=== PATIENT | male | born 1995 | race Caucasian/White ===

== ENCOUNTER 2019-01-03 11:18 | Emergency (ER) | payer OTHER ==
[~2019-01-03] VITALS: Ht 175.3 cm; Wt 93.2 kg
[2019-01-03 12:25] LABS: APPEARANCE, URINE CLEAR (CLEAR); BACTERIA, URINE AUTO NEGATIVE (NEGATIVE); BILIRUBIN, URINE AUTO NEGATIVE (NEGATIVE); BLOOD, URINE BLOOD 2+ (NEGATIVE); COLOR, URINE STRAW (YELLOW); GLUCOSE, URINE (UA) AUTO NEGATIVE (NEGATIVE); KETONE, URINE AUTO NEGATIVE (NEGATIVE); LEUKOCYTE ESTERASE, URINE AUTO NEGATIVE (NEGATIVE); NITRITE, URINE AUTO NEGATIVE (NEGATIVE); PROTEIN, URINE AUTO NEGATIVE (NEGATIVE); RBC, URINE AUTO 0 /HPF (0-3); SPECIFIC GRAVITY URINE AUTO 1.004 (1.002-1.035); SQUAMOUS EPITHELIAL CELL UR AU 0 /HPF (0-6); UROBILINOGEN, URINE AUTO 0.2 mg/dL (0.0-2.0); WBC, URINE AUTO 0 /HPF (0-3)
[2019-01-03 13:18] LABS: CPK CREATINE PHOSPHOKINASE 1621 U/L (39-308)
[2019-01-03] MEDS ORDERED: NS 1,000 ML IV ONE ×2 (13:30)
[2019-01-03 14:39] VITALS: BP 129/73
[2019-01-03 14:58] LABS: MYOGLOBIN 104 NG/ML (16-116)
== END 2019-01-03 14:42 | disposition home or self-care (01) ==
LOC: M ED 11:18
DX: M62.82 Rhabdomyolysis (principal)

== ENCOUNTER → 2019-10-17 | Outpatient (REF) | payer OTHER ==
[2019-10-17 17:49] LABS: ALBUMIN 4.2 GM/DL (3.2-5.2); BILIRUBIN,DIRECT 0.3 MG/DL (0.0-0.2); BILIRUBIN,TOTAL 1.6 MG/DL (0.2-1.0); TOTAL PROTEIN 7.9 GM/DL (6.4-8.2)
== END ==
LOC: M LAB REF 16:34
PROVIDERS: ATTEND Internal Medicine Nephrology
DX: M62.82 Rhabdomyolysis (principal); R94.5 Abnormal results of liver function studies

== ENCOUNTER → 2019-12-18 | Outpatient (REF) | payer OTHER | LOC: M LAB REF 17:53 | PROVIDERS: ATTEND Internal Medicine Nephrology | DX: M62.82 Rhabdomyolysis (principal) ==